=== PATIENT | female | born 1985 | race Caucasian/White ===

== ENCOUNTER → 2017-05-14 | Outpatient (CLI) | payer BC ==
[2017-05-14 12:57] LABS: Basophils % (A) 0 %; Eosinophils # (A) 0.1 k/uL (0-0.7); Eosinophils % (A) 1 %; HCT 45.5 % (34.0-46.0); Lymphocytes # (A) 2.4 k/uL (1.0-4.8); Lymphocytes % (A) 24 %; MCH 28.5 pg (25.0-35.0); MCHC 32.9 g/dL (31.0-37.0); MCV 86.7 fL (80.0-100.0); Mean Platelet Volume 6.9; Monocytes # (A) 0.4 k/uL (0-1.0); Monocytes % (A) 4 %; Neutrophils # (A) 7.1 k/uL (1.3-7.7); Neutrophils % (A) 70 %; Platelet Count 300 k/uL (150-450); RBC 5.25 m/uL (3.80-5.40); RDW 12.9 % (11.5-15.5); WBC 10.1 k/uL (3.8-10.6)
== END | disposition home or self-care (01) ==
LOC: LABPAT 12:05
PROVIDERS: ATTEND Obstetrics & Gynecology
DX: Z01.812 Encounter for preprocedural laboratory examination (principal)
CPT/HCPCS: 36415; 85025

== ENCOUNTER 2017-05-19 05:41 | Day surgery (SDC) | payer BC ==
[2017-05-14 16:21] VITALS: BMI 27.8
--- NOTE | 2017-05-18 07:24 | P.HPOB ---
History of Present Illness H&P Date: 05/18/17 Chief Complaint: Pt is permanent sterilization and IUD removal. This patient is a pleasant 31 yr female who presented to my office requesting permanent sterilization. She is currently using an IUD for control and wishes to have this removed. She is a longstanding insulin dependent diabetic, has one living child and does not desire further children. Past Medical History Past Medical History: Diabetes Mellitus Additional Past Medical History / Comment(s): TYPE ONE DIABETIC , MIGRAINE HEADACHE History of Any Multi-Drug Resistant Organisms: None Reported Past Surgical History: Section, Cholecystectomy Past Anesthesia/Blood Transfusion Reactions: No Reported Reaction Smoking Status: Current every day smoker Past Alcohol Use History: None Reported Past Drug Use History: None Reported - Past Family History Mother Family Medical History: No Reported History Medications and Allergies Home Medications Medication Instructions Recorded Confirmed Type FLUoxetine HCL [PROzac] 20 mg PO DAILY 05/14/17 05/14/17 History INSULIN LISPRO (HumaLOG) [HumaLOG] 12 units SQ QID 05/14/17 05/14/17 History Insulin Glargine [Lantus] 30 unit SQ HS 05/14/17 05/14/17 History Propranolol HCl 10 mg PO BID 05/14/17 05/14/17 History Allergies Allergy/AdvReac Type Severity Reaction Status Date / Time latex Allergy Rash/Hives Verified 05/14/17 13:36 Exam - OBG Physical Exam Abdomen: bowel sounds normal, no diffuse tenderness, no bruit present, no guarding noted, no hepatomegaly, no splenomegaly, no mass Vulva: both: normal Vagina: normal moisture, no discharge Cervix: no lesion (IUD strings visualized), no discharge Uterus: normal size, normal contour Assessment and Plan Assessment: This is a pleasant 31 yr female who is presenting for laparoscopic bilateral fallopian tube cauterization for permanent sterilization. She is also requesting her IUD be removed at this time. She and I have discussed this surgery and she understands that it is considered permanent, however there is a failure rate of about 5-11/999 procedures done and ~50% chance of ectopic or tubal if ever . She understands that the surgery itself inherently has risks: infection, bleeding, possible injury to bowel/bladder/ vessels and/or other organs. She understands that alternatives exist to this surgery and it is considered elective. All of the patients questions are answered and a written consent is obtained. (1) Family planning Status: Acute Code(s): Z30.09 - ENCOUNTER FOR OT GENERAL CNSL AND ADVICE ON CONTRACEPTION SNOMED Code(s): 508838806 (2) IUD (intrauterine device) in place Status: Chronic Code(s): Z97.5 - PRESENCE OF (INTRAUTERINE) CONTRACEPTIVE DEVICE SNOMED Code(s): 544185228
[~2017-05-19 05:41] MED LIST: DEXAMETHASONE SOD PHOSPHATE 10 MG/ML 1 ML VIAL IV ONE; LACTATED RINGERS 1,000 ML IV SCH; MIDAZOLAM 2 MG/2 ML VIAL IV PRN; MORPHINE SULFATE 4MG/4ML SYRG IVP PRN; ONDANSETRON 4 MG/2 ML VIAL IVP ONE; Pre Op ABX Message 1 EACH MISC MISCELLANE ONE
[2017-05-19 06:17] LABS: Glucose,Whole Blood 235 mg/dL (75-99)
[2017-05-19] MEDS ORDERED: LACTATED RINGERS 1,000 ML IV ONE ×2 (06:22→07:42)
[2017-05-19] MEDS ORDERED: LIDOCAINE 1% 20 ML VIAL (10MG/ML) FOR IV START INTRADERMA ONE (06:25)
[2017-05-19] MEDS ORDERED: INSULIN ASPART 100 UNIT/ML 1 ML 10 ML VIAL SQ ONE (06:50)
[2017-05-19] MEDS ORDERED: SUCCINYLCHOLINE CHLORIDE 100 MG/5 ML SYR IV ONE (07:24)
[2017-05-19] MEDS ORDERED: MIDAZOLAM 2 MG/2 ML VIAL ONE (07:24)
[2017-05-19] MEDS ORDERED: KETOROLAC 30 MG/ML 1 ML VIAL ONE (07:24)
[2017-05-19] MEDS ORDERED: NEOSTIGMINE 1 MG/ML 10 ML VIAL ONE (07:24)
[2017-05-19] MEDS ORDERED: PROPOFOL 10 MG/ML 20 ML VIAL IV ONE (07:24)
[2017-05-19] MEDS ORDERED: LIDOCAINE 1% INJ 10MG/ML (20 ML MDV) ONE (07:24)
[2017-05-19] MEDS ORDERED: GLYCOPYRROLATE 0.2 MG/ML 2 ML VIAL ONE (07:24)
[2017-05-19] MEDS ORDERED: fentaNYL (PF) 50 MCG/ML 2 ML AMP ONE (07:24)
[2017-05-19] MEDS ORDERED: ROCURONIUM BROMIDE 10 MG/ML 10 ML VIAL IV ONE (07:24)
[2017-05-19] MEDS ORDERED: BUPIVACAINE (PF) 0.5% 30 ML VIAL SQ ONE (07:40)
--- NOTE | 2017-05-19 08:12 | P.OP ---
Date of Procedure: 05/19/17 Preoperative Diagnosis: Desires permanent sterilization; IUD in place Postoperative Diagnosis: Same Procedure(s) Performed: Laparoscopic bilateral fallopian tube cauterization.; IUD removal Anesthesia: GILLA Surgeon: Woody Barlow Estimated Blood Loss (ml): 10 IV fluids (ml): 500 Urine output (ml): 50 Pathology: none sent Condition: stable Disposition: PACU Indications for Procedure: Please see dictated H&P for intimate details of this patient's admission. Brief summary is a pleasant 32-year-old female who is requesting permanent sterilization for control and IUD removal. Patient I discussed the surgery and risks including risks of infection, bleeding, possible injury to bowel, bladder, vessels, and/or other organs. All the patient's questions are answered and a written consent is obtained. Operative Findings: This patient had a normal-appearing uterus tubes and ovaries. Patient had IUD in place which was removed. Description of Procedure: This patient is taken to the operating room where she is laid in the supine position. She subsequent undergoes general tracheal anesthesia without incident. With an adequate level of anesthesia she's placed in the dorsal lithotomy position. She has a vaginal perineal abdominal prep and drape. I first good on below placed a speculum into the vagina and visualize the cervix. IUD strings are visualized in place and is removed with an Allis clamp without difficulty. I Then Pl., Allis clamp and the anterior lip of the cervix and place a small acorn cannula into the endocervix gently. A latex free catheter is in place and the bladder for 50 mL of urine and left in place to drain. I then changed gloves and go up above. I make a 1 cm infraumbilical incision and through this a 10 mm bladed lists optical trochars placed. Pneumoperitoneum was then created to 12 mm of carbon dioxide gas. With this done I visualize the pelvis and then make a 5 mm incision in the previous C- section scar about 2 finger breaths above the symphysis pubis. Using a blunt probe I visualize the uterus tubes and ovaries all appear normal. Upper abdomen grossly appears normal. Using bipolar cautery I then grasped the left fallopian tube approximately 4 cm from its cornual insertion and cauterization done about 2-3 cm segment of fallopian tube this is done with bipolar cautery complete cauterization is noted by the volt meter. Similar technique is done on the right side with similar results. With this completed and excellent hemostasis noted, the procedure is ended. The lower trochars removed and appears to be hemostatic. Pneumoperitoneum was reduced and the upper trochars removed. Incisions are then closed using a 4-0 Vicryl interrupted fashion. Steri-Strips and sterile dressing is applied. I infiltrate both incisions with half percent Marcaine for postoperative pain control. I then good on below remove the acorn cannula an Allis clamp. All counts are correct 3. There are no complications. Patient is awakened from anesthesia and taken recovery room in satisfactory condition.
[2017-05-19 08:13] LABS: Glucose,Whole Blood 213 mg/dL (75-99)
[2017-05-19 08:16] VITALS: TEMP 97.6
[2017-05-19 09:07] VITALS: RESP 18
[2017-05-19] MEDS ORDERED: MORPHINE SULFATE 10 MG/ML SYRINGE IVP ONE (09:07)
[2017-05-19] MEDS ORDERED: HYDROcodone/APAP 5-325MG 1 EACH TAB PO ONE (09:08)
[2017-05-19 09:29] VITALS: BP 106/67; PULSE 70
== END 2017-05-19 09:59 | disposition home or self-care (01) ==
LOC: OR 05:41
PROVIDERS: ATTEND Obstetrics & Gynecology
DX: Z30.2 Encounter for sterilization (principal); F17.210 Nicotine dependence, cigarettes, uncomplicated; R00.0 Tachycardia, unspecified; E11.9 Type 2 diabetes mellitus without complications; Z79.4 Long term (current) use of insulin; Z79.899 Other long term (current) drug therapy; Z91.040 Latex allergy status; Z90.49 Acquired absence of other specified parts of digestive tract; Z97.5 Presence of (intrauterine) contraceptive device
CPT/HCPCS: 81025; 58670; 58301; J2250; J1100; J2710; J2270; J2405; J2001; J3010; J1885; J0330; J2704

== ENCOUNTER → 2020-04-05 | Outpatient (CLI) | payer BC, MEDICAID ==
--- NOTE | 2020-04-06 06:47 | CT ---
EXAMINATION TYPE: CT brain wo con DATE OF EXAM: 04/05/2020 COMPARISON: None. HISTORY: Dizziness and giddiness x2 weeks, no injury. CT DLP: 794.3 mGycm. Automated Exposure Control for Dose Reduction was Utilized. TECHNIQUE: CT scan of the head is performed without contrast. FINDINGS: There is no acute intracranial hemorrhage, mass effect, or midline shift identified. The ventricles and sulci are within normal limits in size. Amanda-white matter differentiation is maintain ed. No suspicious opacification mastoid air cells. The globes are intact and the visualized sinuses a re clear. IMPRESSION: Unremarkable study.
== END | disposition home or self-care (01) ==
LOC: RADCTMAIN 17:15
PROVIDERS: ATTEND Family Medicine
DX: R42 Dizziness and giddiness (principal)
CPT/HCPCS: 70450

== ENCOUNTER → 2020-04-06 | Outpatient (CLI) | payer BC, MEDICAID | LOC: LABWHC1 10:50 | PROVIDERS: ATTEND Family Medicine | DX: Z03.89 Encounter for observation for other suspected diseases and conditions ruled out (principal); Z20.822 Contact with and (suspected) exposure to COVID-19 | CPT/HCPCS: 87635; C9803 ==

== ENCOUNTER → 2020-04-09 | Outpatient (CLI) | payer BC, MEDICAID | END | disposition home or self-care (01) | LOC: LABWHC1 16:36 | PROVIDERS: ATTEND Family Medicine | DX: Z20.822 Contact with and (suspected) exposure to COVID-19 (principal) | CPT/HCPCS: U0003; C9803; U0005 ==

== ENCOUNTER → 2020-09-14 | Outpatient (CLI) | payer BC, MEDICAID ==
--- NOTE | 2020-09-15 03:50 | MR ---
EXAMINATION TYPE: MR brain and iac wo/w con DATE OF EXAM: 09/14/2020 COMPARISON: None HISTORY: Sudden right ear hearing loss for 9 days. CONTRAST: Standard multiplanar, multisequence MRI departmental protocol utilizing 8.5 mL intravenous Gadavist g adolinium contrast. Ventricles and sulci appear normal. There is no mass effect nor midline shift. There is no sign of in tracranial hemorrhage. Diffusion images show no evidence of an acute infarct. Corpus callosum appears normal. The brainstem is intact. The flores-white matter structures have fairly normal signal pattern. There is no evidence of cerebral edema. The internal auditory canals appear normal. There is normal appearance of the acoustic nerve and vest ibular nerves. There is no evidence of a posterior fossa mass. Cerebellum appears normal. There is no rmal signal pattern in the temporal bones. There is no evidence of mastoiditis. The contrast images s how no pathologic enhancement. There is normal enhancement of the venous sinuses. Pituitary stalk is in the midline. There is no evidence of a sellar mass. Optic chiasm appears normal. IMPRESSION: Negative MR scan of the brain. No evidence of a focal posterior fossa abnormality. No evidence of dem yelinating disease. I do not see a cause for hearing loss.
== END | disposition home or self-care (01) ==
LOC: RADMRIMAIN 19:02
PROVIDERS: ATTEND Otolaryngology
DX: H93.3X9 Disorders of unspecified acoustic nerve (principal); H93.19 Tinnitus, unspecified ear; H91.90 Unspecified hearing loss, unspecified ear; R51.9 Headache, unspecified
CPT/HCPCS: 70553; A9585

== ENCOUNTER 2021-03-09 06:39 | Emergency (ER) | payer BC, MEDICAID ==
--- NOTE | 2021-03-09 07:08 | ED ---
General Adult HPI - General Chief complaint: Shortness of Breath Stated complaint: Shortness of breath Time Seen by Provider: 03/09/21 06:56 Source: patient, RN notes reviewed Mode of arrival: ambulatory Limitations: no limitations - History of Present Illness Initial comments: 35-year-old female presents emergency Department chief complaint of COVID-19. Patient states that she service symptoms on Thursday and primary on Thursday. Patient states she tested negative at home but did appear a tested radiate which was positive. Patient has recurrent her results. Patient states that she has had sore throat bodyaches mild shortness of breath cough. Patient is known to 1 diabetic on insulin pump. Patient is here requesting monoclonal antibodies. - Related Data Home Medications Medication Instructions Recorded Confirmed FLUoxetine HCL [PROzac] 20 mg PO DAILY 05/14/17 05/14/17 INSULIN LISPRO (HumaLOG) [HumaLOG] 12 units SQ QID 05/14/17 05/14/17 Insulin Glargine [Lantus] 30 unit SQ HS 05/14/17 05/14/17 Propranolol HCl 10 mg PO BID 05/14/17 05/14/17 Previous Rx's Medication Instructions Recorded Acetaminophen-Codeine 300-30mg 1 - 2 tab PO Q4H PRN #30 tablet 05/19/17 [Tylenol #3] Ibuprofen [Motrin] 600 mg PO Q6HR PRN #40 tab 05/19/17 Allergies Allergy/AdvReac Type Severity Reaction Status Date / Time latex Allergy Rash/Hives Verified 03/09/21 06:54 Review of Systems ROS Statement: Those systems with pertinent positive or pertinent negative responses have been documented in the HPI. ROS Other: All systems not noted in ROS Statement are negative. Past Medical History Past Medical History: Diabetes Mellitus History of Any Multi-Drug Resistant Organisms: ESBL Date of last positivie culture/infection: 2011 MDRO Source:: bladder Past Surgical History: Section, Cholecystectomy Past Psychological History: Anxiety Smoking Status: Vaper Past Alcohol Use History: Occasional Past Drug Use History: None Reported General Exam Limitations: no limitations General appearance: alert, in no apparent distress Head exam: Present: atraumatic, normocephalic, normal inspection Eye exam: Present: normal appearance, PERRL, EOMI. Absent: scleral icterus, conjunctival injection, periorbital swelling ENT exam: Present: normal exam, normal oropharynx, mucous membranes moist Neck exam: Present: normal inspection, full ROM. Absent: tenderness, meningi smus, lymphadenopathy Respiratory exam: Present: rhonchi (Left). Absent: normal lung sounds bilaterally, respiratory distress, wheezes, rales, stridor Cardiovascular Exam: Present: regular rate, normal rhythm, normal heart sounds. Absent: systolic murmur, diastolic murmur, rubs, gallop, clicks Course Vital Signs 03/09/21 06:48 Temperature 98.9 F Pulse Rate 105 H Respiratory 24 Rate Blood Pressure 105/67 O2 Sat by Pulse 99 Oximetry Medical Decision Making - Medical Decision Making 35-year-old female presented for monoclonal antibodies. X-rays unremarkable. Patient did receive monoclonal antibodies and will be discharged in stable condition return parameters were discussed Disposition Clinical Impression: COVID-19 Disposition: HOME SELF-CARE Condition: Stable Instructions (If sedation given, give patient instructions): Coronavirus Disease 2019 (COVID-19) Additional Instructions: Please return to the Emergency Department if symptoms worsen or any other concerns. Is patient prescribed a controlled substance at d/c from ED?: No Referrals: Vic Atkinson MD [Primary Care Provider] - 1-2 days Time of Disposition: 07:35
--- NOTE | 2021-03-09 07:16 | XR ---
EXAMINATION TYPE: XR chest 2V DATE OF EXAM: 03/09/2021 COMPARISON: None HISTORY: Shortness of breath TECHNIQUE: Frontal and lateral views of the chest are obtained. FINDINGS: There is no focal air space opacity, pleural effusion, or pneumothorax seen. The cardiac silhouette size is within normal limits. The osseous structures are intact. IMPRESSION: No acute cardiopulmonary process.
[2021-03-09] MEDS ORDERED: SODIUM CHLORIDE 0.9% 50 ML IVPB ONE (07:30)
[2021-03-09] MEDS ORDERED: SOTROVIMAB (EUA) 500 MG in SODIUM CHLORIDE 0.9% 100 ML IVPB ONE (07:30)
[2021-03-09 07:50] VITALS: RESP 16
[2021-03-09 09:24] VITALS: BP 102/69; PULSE 90; TEMP 97.8
== END 2021-03-09 09:23 | disposition home or self-care (01) ==
LOC: EC 06:39
DX: U07.1 COVID-19 (principal); F17.290 Nicotine dependence, other tobacco product, uncomplicated; E11.9 Type 2 diabetes mellitus without complications; Z91.040 Latex allergy status; Z79.4 Long term (current) use of insulin
CPT/HCPCS: 71046; 99284; Q0247

== ENCOUNTER 2021-05-21 19:33 | Emergency (ER) | payer BC ==
[2021-05-21 19:59] VITALS: BP 114/67; PULSE 101; RESP 18; TEMP 97.8
[2021-05-21 20:24] LABS: Basophils % (A) 0 %; Eosinophils % (A) 1 %; HCT 38.7 % (34.0-46.0); HGB 12.8 gm/dL (11.4-16.0); Lymphocytes # (A) 2.6 k/uL (1.0-4.8); Lymphocytes % (A) 36 %; MCH 29.7 pg (25.0-35.0); MCHC 33.1 g/dL (31.0-37.0); MCV 89.9 fL (80.0-100.0); Monocytes # (A) 0.4 k/uL (0-1.0); Monocytes % (A) 5 %; Neutrophils # (A) 4.1 k/uL (1.3-7.7); Neutrophils % (A) 56 %; Platelet Count 375 k/uL (150-450); RDW 13.9 % (11.5-15.5); WBC 7.3 k/uL (3.8-10.6)
[2021-05-21 20:34] LABS: INR 0.9 (<1.2); Partial Thromboplastin Time 24.2 sec (22.0-30.0); Prothrombin Time 10.3 sec (9.0-12.0)
[2021-05-21 20:35] LABS: ALT 9 U/L (4-34); AST 17 U/L (14-36); African American GFR (CKD) >90 (>60 ml/min/1.73 sqM); Albumin 4.5 g/dL (3.5-5.0); Alkaline Phosphatase 94 U/L (38-126); Anion Gap 9 mmol/L; Blood Urea Nitrogen 15 mg/dL (7-17); Calcium 9.4 mg/dL (8.4-10.2); Carbon Dioxide 25 mmol/L (22-30); Chloride 101 mmol/L (98-107); Glucose 151 mg/dL (74-99); Magnesium 1.7 mg/dL (1.6-2.3); Non-African American GFR(CKD) 82 (>60 ml/min/1.73 sqM); Potassium 4.2 mmol/L (3.5-5.1); Sodium 135 mmol/L (137-145); Total Bilirubin 0.5 mg/dL (0.2-1.3); Total Protein 7.4 g/dL (6.3-8.2)
--- NOTE | 2021-05-21 20:39 | XR ---
EXAMINATION TYPE: XR chest 2V DATE OF EXAM: 05/21/2021 COMPARISON: 03/09/2021 HISTORY: Chest pain TECHNIQUE: 2 views FINDINGS: Heart and mediastinum are normal. Lungs are clear. Diaphragm is normal. Bony thorax appears normal. IMPRESSION: Normal chest. No change.
== END 2021-05-21 22:26 | disposition left against medical advice (07) ==
LOC: EC 19:33
DX: Z53.21 Procedure and treatment not carried out due to patient leaving prior to being seen by health care provider (principal)
CPT/HCPCS: 36415; 71046; 80053; 83735; 84484; 85025; 85610; 85730; 93005; 99499

== ENCOUNTER → 2021-06-19 | Outpatient (CLI) | payer BC ==
--- NOTE | 2021-06-19 12:46 | US ---
EXAMINATION TYPE: US thyroid st tissue head/neck DATE OF EXAM: 06/19/2021 COMPARISON: CT 05/22/21 CLINICAL HISTORY: E04.2 POSSIBLE GOITER. f/u to CT GLAND SIZE: Right Lobe: 5.2 x 1.8 x 1.2 cm Overall Parenchyma: heterogenous Left Lobe: 6.4 x 2.1 x 1.5 cm Overall Parenchyma: heterogeneous Isthmus Thickness: 0.7 cm NODULES RIGHT: # of nodules measured on right: 0, diffusely heterogeneous LEFT: # of nodules measured on left: 1 1. 2.7 X 2.5 x 1.4 cm, lower mid, solid or almost completely solid, hyperechoic nodule, which is ta ller than wide, with ill-defined margins, without echogenic foci. Prior size: No previous, diffusely heterogeneous ISTHMUS: # of nodules measured in the isthmus: 1 1. 0.8 X 0.8 x 0.8 cm solid or almost completely solid, hyperechoic nodule, which is , with ill-def ined margins, without echogenic foci. very inferior, toward right side. Prior size: No previous Bilateral neck scanned, no evidence of lymphadenopathy. IMPRESSION: 1. Glandular enlargement with diffuse heterogeneity. 2. Nonspecific solid isoechoic nodule right thyroid lobe consider tissue diagnosis.
== END | disposition home or self-care (01) ==
LOC: RADUSWWP 12:02
PROVIDERS: ATTEND Internal Medicine Endocrinology, Diabetes & Metabolism
DX: E04.2 Nontoxic multinodular goiter (principal)
CPT/HCPCS: 76536

== ENCOUNTER → 2021-07-16 | Outpatient (CLI) | payer BC ==
[2021-07-16 15:01] LABS: HCT 41.4 % (37.2-46.3); HGB 12.6 g/dL (12.0-15.0); MCH 27.2 pg (27.0-32.0); MCHC 30.4 g/dL (32.0-37.0); MCV 89.2 fL (80.0-97.0); Mean Platelet Volume 9.9 fL (9.5-12.2); NRBC Per 100 WBC 0 /100 WBCS (0.0-0.0); Platelet Count 373 X 10*3/uL (140-440); RBC 4.64 X 10*6/uL (4.10-5.20); RDW 13.2 % (11.5-14.5); WBC 4.64 X 10*3/uL (4.50-10.00)
[2021-07-16 15:23] LABS: T4, Free (Free Thyroxine) 1.02 ng/dL (0.800-1.800)
== END | disposition home or self-care (01) ==
LOC: LABWHC1 08:41
PROVIDERS: ATTEND Internal Medicine
DX: R55 Syncope and collapse (principal)
CPT/HCPCS: 36415; 82533; 83880; 84439; 84443; 85027

== ENCOUNTER 2021-07-23 12:44 | Day surgery (SDC) | payer BC ==
[2021-07-23 13:34] VITALS: RESP 18; TEMP 98.1
[2021-07-23 14:36] VITALS: BP 106/69; PULSE 83
--- NOTE | 2021-07-23 15:27 | US ---
Discontinued fine-needle aspiration HISTORY: Abnormal thyroid ultrasound Correlation ultrasound thyroid 06/19/2021 A discrete nodule was not identified for percutaneous biopsy at this time. The gland is diffusely heterogeneous, consider underlying thyroiditis. impression: Discontinued biopsy, consider thyroiditis
== END 2021-07-23 14:45 | disposition home or self-care (01) ==
LOC: RADPROMAIN 12:44
PROVIDERS: ATTEND Otolaryngology
DX: E04.1 Nontoxic single thyroid nodule (principal)
CPT/HCPCS: 76536

== ENCOUNTER → 2021-07-25 | Outpatient (CLI) | payer BC | END | disposition home or self-care (01) | LOC: LABWHC1 10:20 | PROVIDERS: ATTEND Family Medicine | DX: E06.9 Thyroiditis, unspecified (principal) | CPT/HCPCS: 36415; 84481; 86376; 86800 ==

== ENCOUNTER → 2021-07-29 | Day surgery (SDC) | payer BC ==
[2021-07-26 10:37] VITALS: BMI 26.6
[~2021-07-29] MED LIST changes: -DEXAMETHASONE SOD PHOSPHATE 10 MG/ML 1 ML VIAL IV ONE; +IV FLUID CONTINUATION 500 ML IV ONE; -LACTATED RINGERS 1,000 ML IV SCH; -MIDAZOLAM 2 MG/2 ML VIAL IV PRN; -MORPHINE SULFATE 4MG/4ML SYRG IVP PRN; -ONDANSETRON 4 MG/2 ML VIAL IVP ONE; -Pre Op ABX Message 1 EACH MISC MISCELLANE ONE; +SODIUM CHLORIDE 0.9% 1,000 ML IV SCH
[2021-07-29 12:32] LABS: Glucose,Whole Blood 97 mg/dL (70-110)
[2021-07-29 12:52] VITALS: BP 110/71; PULSE 86; RESP 16; TEMP 97.3
--- NOTE | 2021-07-29 17:14 | P.EPPROC ---
- EP Procedure Note Electrophysiology Procedure Note: Diagnosis Recurrent syncope Twelve-lead EKG sinus mechanism normal IA narrow QRS normal ST segments No delta waves no epsilon waves normal precordial ST segments Tilt table test per protocol Baseline blood pressure 102/64 mmHg Baseline heart rate 75-80 beats a minute Patient was tilted upright per protocol Baseline blood pressure 102/64 mmHg Baseline heart rate 75-80 bpm When he was tilted upright his heart rate immediately increased to 110 beats a minute Blood pressure was 108/73 mmHg He complained of dizziness and feeling hot Thereafter his heart rate ranged from 110-120 beats a minute Minute reached 120 beats a minute complained of feeling hot and 40 At no time he experienced a drop in blood pressure or any evidence for neurocardiogenic syncope At the end of the procedure when he was laid supine his blood pressure remained stable but his heart rate normalized to his baseline to 75-80 beats a minute Impression Orthostatic intolerance No evidence for secondary neurocardiogenic syncope Normal twelve-lead EKG
== END ==
LOC: CATHEP 11:45
PROVIDERS: ATTEND Internal Medicine Clinical Cardiac Electrophysiology
DX: R55 Syncope and collapse (principal); E10.9 Type 1 diabetes mellitus without complications; I10 Essential (primary) hypertension; Z82.49 Family history of ischemic heart disease and other diseases of the circulatory system; Z86.16 Personal history of COVID-19; R00.2 Palpitations; I49.8 Other specified cardiac arrhythmias; Z79.4 Long term (current) use of insulin; Z79.899 Other long term (current) drug therapy; Z20.822 Contact with and (suspected) exposure to COVID-19
CPT/HCPCS: 87635; 93660

== ENCOUNTER → 2021-11-12 | Outpatient (CLI) | payer BC ==
--- NOTE | 2021-11-12 15:43 | US ---
EXAMINATION TYPE: US thyroid st tissue head/neck DATE OF EXAM: 11/12/2021 COMPARISON: US June 19, 2021 CLINICAL HISTORY: E04.1 NONTOXIC SINGLE THYROID NODULE. Follow up from discontinued thyroid FNA GLAND SIZE: Right Lobe: 5.1 x 1.9 x 1.5 cm Overall Parenchyma: heterogenous Left Lobe: 6.9 x 2.3 x 1.6 cm, enlarged Overall Parenchyma: heterogeneous Isthmus Thickness: 0.5 cm NODULES RIGHT: # of nodules measured on right: 0 LEFT: # of nodules measured on left: 0 ISTHMUS: # of nodules measured in the isthmus: 0 Diffusely heterogeneous thyroid with enlarged left lobe, no definite nodules seen at this time. Bilateral neck scanned, no evidence of lymphadenopathy. Heterogeneous prominent thyroid with asymmetric left thyroid lobe enlargement is redemonstrated. No d efinitive new solid or cystic nodules identified on current study. IMPRESSION: As above.
== END | disposition home or self-care (01) ==
LOC: RADUSWWP 14:53
PROVIDERS: ATTEND Family Medicine
DX: E04.1 Nontoxic single thyroid nodule (principal)
CPT/HCPCS: 76536

== ENCOUNTER → 2022-06-09 | Outpatient (CLI) | payer BC ==
--- NOTE | 2022-06-10 18:51 | MM ---
Reason for Exam: Screening (asymptomatic). Baseline mammogram. Patient History: Menarche at age 11. First Full-Term at age 22. Maternal aunt had breast cancer under age 50. Maternal aunt had breast cancer at or over age 50. Mother had breast cancer at or over age 50. Last menstrual period: 06/08/2022 Risk Values: Hoda 5 year model risk: 0.9%. NCI Lifetime model risk: 18.5%. Prior Study Comparison: Patient's first Mammogram. Tissue Density: The breast tissue is heterogeneously dense. This may lower the sensitivity of mammography. Findings: Analyzed By CAD. No significant mass, suspicious microcalcification, or other discrete abnormality is seen. Overall Assessment: Benign, BI-RAD 2 Management: Screening Mammogram of both breasts at age 39. . Patient should continue monthly self-breast exams. A clinical breast exam by your physician is recommended on an annual basis. This exam should not preclude additional follow-up of suspicious palpable abnormalities. Note on Hoda scores and lifetime risk: 1. A Hoda score greater than 3% is considered moderate risk. If this is the case, consider specialist referral to assess eligibility for a risk reducing agent. 2. If overall lifetime risk for the development of breast cancer is 20% or higher, the patient may qualify for future screening with alternating mammogram and breast MRI. Electronically signed and approved by: Maribel Fernandez M.D. Radiologist
== END | disposition home or self-care (01) ==
LOC: RADMAMWWP 11:07
PROVIDERS: ATTEND Family Medicine
DX: Z12.31 Encounter for screening mammogram for malignant neoplasm of breast (principal); Z80.3 Family history of malignant neoplasm of breast
CPT/HCPCS: 77067

== ENCOUNTER → 2022-07-04 | Outpatient (CLI) | payer BC ==
--- NOTE | 2022-07-04 14:06 | US ---
EXAMINATION TYPE: US thyroid st tissue head/neck DATE OF EXAM: 07/04/2022 COMPARISON: Thyroid NOVEMBER 12, 2021 CLINICAL INDICATION: Female, 37 years old with history of E04.1 NONTOXIC SINGLE THYROID NODULE; thyro megaly GLAND SIZE: Right Lobe: 5.2 x 1.8 x 1.5 cm Overall Parenchyma: heterogenous Left Lobe: 6.5 x 1.9 x 1.6 cm Overall Parenchyma: heterogenous Isthmus Thickness: 0.4 cm NODULES RIGHT: # of nodules measured on right: 0 LEFT: # of nodules measured on left: - possible ill-defined slightly hyperechoic nodule lower fabiola e = 1.9 x 1.1 x 1.6cm ISTHMUS: # of nodules measured in the isthmus: 0 Bilateral neck scanned, no evidence of lymphadenopathy. Markedly heterogeneous fairly normal size thyroid remains present. IMPRESSION: As above.
== END | disposition home or self-care (01) ==
LOC: RADUSWWP 12:49
PROVIDERS: ATTEND Otolaryngology
DX: E04.1 Nontoxic single thyroid nodule (principal)
CPT/HCPCS: 76536

== ENCOUNTER → 2022-08-06 | Outpatient (CLI) | payer BC ==
--- NOTE | 2022-08-07 09:15 | NM ---
EXAMINATION TYPE: NM thyroid image w uptake DATE OF EXAM: 08/07/2022 COMPARISON: Multiple thyroid ultrasounds most recently 07/04/2022 CLINICAL INDICATION: Female, 37 years old with history of E04.1; TECHNIQUE: Thyroid iodine uptake is calculated and images performed after the oral administration of 324 uCi 1-123 Capsule. FINDINGS: There is normal distribution of activity throughout the gland. The gland is bulky with asym metric enlargement of the left thyroid gland corresponding to ultrasound. The 4 hour iodine uptake is calculated at 14.2% (normal range 8-14%). The 24-hour iodine uptake is calculated at 38.6% (normal r nato 15-35%). IMPRESSION: Mildly abnormal increased iodine uptake at 4 hour and 24-hour most consistent with hypert hyroidism.
== END | disposition home or self-care (01) ==
LOC: RADNMMAIN 08:32
PROVIDERS: ATTEND Otolaryngology
DX: E04.1 Nontoxic single thyroid nodule (principal)
CPT/HCPCS: 78014; A9516

== ENCOUNTER → 2024-04-15 | Outpatient (CLI) | payer BC, MEDICARE ==
[2024-04-15 10:59] LABS: African American GFR (CKD) >90 (>60 ml/min/1.73 sqM); Blood Urea Nitrogen 8 mg/dL (7-17); Non-African American GFR(CKD) >90 (>60 ml/min/1.73 sqM)
--- NOTE | 2024-04-15 14:39 | CT ---
EXAMINATION TYPE: CT angio chest CT DLP: 352 mGycm, Automated exposure control for dose reduction was used. DATE OF EXAM: 04/15/2024 11:30 AM COMPARISON: CTA chest 05/22/2021 CLINICAL INDICATION:Female, 39 years old with history of R06.02; SOB TECHNIQUE/CONTRAST: CTA scan of the thorax is performed without and with IV Contrast, patient injected with 100 ml mL of Isovue 370, pulmonary embolism protocol. MIP images are created and reviewed. FINDINGS: Pulmonary Artery: There is no evidence for a filling defect within the pulmonary vasculature to sugge st acute pulmonary embolism. The pulmonary artery is of normal size. Lungs/Pleura: No evidence of focal consolidation, pleural effusion or pneumothorax. No suspicious pul monary nodule or mass. Airway: Large airways are patent. Heart: Size within normal limits.No pericardial effusion No significant coronary artery calcification s. Vasculature: No evidence of aortic aneurysm. Mediastinum: No gross evidence of adenopathy. Musculoskeletal: No acute osseous abnormalities. Multilevel Schmorl's nodes. Soft Tissues: Unremarkable. Lower neck: Enlarged left thyroid lobe with some substernal extension redemonstrated. Upper Abdomen: There is surgical absent.. IMPRESSION: No evidence of pulmonary embolism or acute thoracic process. [facility], , 04/15/2024 2:37 PM
== END | disposition home or self-care (01) ==
LOC: RADCTMAIN 09:33
PROVIDERS: ATTEND Internal Medicine
DX: R06.02 Shortness of breath (principal); E04.8 Other specified nontoxic goiter
CPT/HCPCS: 82565; 84520; 71275; Q9967

== ENCOUNTER → 2024-05-19 | Outpatient (CLI) | payer BC, MEDICARE ==
--- NOTE | 2024-05-19 12:55 | CA ---
Transthoracic Echo Report Name: Sonido Chinchilla Age: 39 Gender: F : 1985 Exam Date: 05/19/2024 09:48 Exam Location: [facility] Ht (in): 67 Wt (lb): 146 Ordering Physician: Kevin Rose DO ([email or web address]) Attending/Referring Phys: Leilani Purcell [facility] Production Assistant Zee Huang RDCS Procedure CPT: Indications: R06.02 SHORTNESS OF BREATH Cardiac Hx: Technical Quality: Good Contrast 1: Agitated Saline Total Dose (mL): 10 Contrast 2: Total Dose (mL): MEASUREMENTS (Male / Female) Normal Values 2D ECHO LV Diastolic Diameter PLAX 3.6 cm 4.2 - 5.9 / 3.9 - 5.3 cm LV Systolic Diameter PLAX 2.5 cm IVS Diastolic Thickness 0.8 cm 0.6 - 1.0 / 0.6 - 0.9 cm LVPW Diastolic Thickness 0.8 cm 0.6 - 1.0 / 0.6 - 0.9 cm LV Relative Wall Thickness 0.4 LVOT Diameter 1.8 cm LV Diastolic Volume MOD BP 74.3 cm??? 67 - 155 / 56 - 104 cm??? LV Systolic Volume MOD BP 27.9 cm??? 22 - 58 / 19 - 49 cm??? LV Ejection Fraction MOD BP 62.4 % >= 55 % LV Cardiac Index MOD BP 2459.0 cm???/min???m??? LV Diastolic Volume MOD 4C 66.2 cm??? LV Systolic Volume MOD 4C 26.5 cm??? LV Ejection Fraction MOD 4C 60.0 % LV Cardiac Index MOD 4C 2106.4 cm???/min???m??? LV Diastolic Length 4C 8.6 cm LV Systolic Length 4C 7.3 cm LV Diastolic Volume MOD 2C 73.6 cm??? LV Systolic Volume MOD 2C 26.4 cm??? LV Ejection Fraction MOD 2C 64.2 % LV Cardiac Index MOD 2C 2504.3 cm???/min???m??? LV Diastolic Length 2C 7.5 cm LV Systolic Length 2C 6.5 cm LA Volume 36.4 cm??? 18 - 58 / 22 - 52 cm??? LA Volume Index 20.5 cm???/m??? 16 - 28 cm???/m??? DOPPLER AV Peak Velocity 126.7 cm/s AV Peak Gradient 6.4 mmHg AV Mean Velocity 85.3 cm/s AV Mean Gradient 3.3 mmHg AV Velocity Time Integral 22.6 cm LVOT Peak Velocity 88.5 cm/s LVOT Peak Gradient 3.1 mmHg LVOT Velocity Time Integral 15.8 cm LVOT Stroke Volume 39.9 cm??? LVOT Stroke Volume Index 22.6 ml/m??? LVOT Cardiac Index 2115.2 cm???/min???m??? AV Area Cont Eq vti 1.8 cm??? AV Area Cont Eq pk 1.8 cm??? MV Area PHT 5.2 cm??? Mitral E Point Velocity 53.1 cm/s Mitral A Point Velocity 46.6 cm/s Mitral E to A Ratio 1.1 MV Deceleration Time 147.0 ms TR Peak Velocity 187.3 cm/s TR Peak Gradient 14.0 mmHg Right Atrial Pressure 5.0 mmHg Pulmonary Artery Systolic Pressu 19.0 mmHg Right Ventricular Systolic Press 19.0 mmHg PV Peak Velocity 80.4 cm/s PV Peak Gradient 2.6 mmHg FINDINGS Left Ventricle Left ventricular ejection fraction is estimated at 60 %. Left ventricular cavity size normal. Left ventricular wall thickness normal. No obvious regional wall motion abnormalities. Right Ventricle Normal right ventricular size and function. Right ventricular systolic pressure within normal limits. Right Atrium Normal right atrial size. Negative agitated saline bubble study for right to left shunt. Left Atrium Normal left atrial size. Mitral Valve Structurally normal mitral valve. No mitral stenosis, regurgitation or prolapse. Aortic Valve Trileaflet aortic valve. No aortic valve stenosis or regurgitation. Tricuspid Valve Structurally normal tricuspid valve. No tricuspid stenosis. Mild tricuspid regurgitation. Pulmonic Valve Pulmonic valve not well visualized. No pulmonic stenosis. No pulmonic regurgitation. Pericardium No pericardial effusion. Aorta Aortic annulus normal. Ascending aorta not well visualized. CONCLUSIONS Technically difficult study Normal LV systolic function Previewed by: Dr. Jimmy Paul MD (Electronically Signed) Final Date: 19 May 2024 12:54
== END | disposition home or self-care (01) ==
LOC: RADECHMAIN 09:42
PROVIDERS: ATTEND Internal Medicine
DX: R06.02 Shortness of breath (principal)
CPT/HCPCS: 93306

== ENCOUNTER → 2024-05-19 | Outpatient (CLI) | payer BC, MEDICARE ==
--- NOTE | 2024-05-19 13:43 | MM ---
Reason for Exam: Screening (asymptomatic). Last mammogram was performed 1 year(s) and 11 month(s) ago. Patient History: Menarche at age 11. First Full-Term at age 22. Maternal aunt had breast cancer under age 50. Maternal aunt had breast cancer at or over age 50. Mother had breast cancer at or over age 50. Last menstrual period: 05/06/2024 Risk Values: Hoda 5 year model risk: 1.1%. NCI Lifetime model risk: 18.3%. Prior Study Comparison: 06/09/2022 Bilateral MG screening mammo w CAD, [facility]. Tissue Density: The breasts are heterogeneously dense, which may obscure small masses. Findings: Analyzed By CAD. There is no suspicious group of microcalcifications or new suspicious mass in either breast. Overall Assessment: Negative, BI-RAD 1 Management: Screening Mammogram of both breasts in 1 year. Patient should continue monthly self-breast exams. A clinical breast exam by your physician is recommended on an annual basis. This exam should not preclude additional follow-up of suspicious palpable abnormalities. Note on Hoda scores and lifetime risk: 1. A Hoda score greater than 3% is considered moderate risk. If this is the case, consider specialist referral to assess eligibility for a risk reducing agent. 2. If overall lifetime risk for the development of breast cancer is 20% or higher, the patient may qualify for future screening with alternating mammogram and breast MRI. [facility], , 05/19/2024 1:41 PM. Electronically signed and approved by: Maribel Fernandez M.D. Radiologist
== END | disposition home or self-care (01) ==
LOC: RADMAMWWP 09:19
PROVIDERS: ATTEND Family Medicine
DX: Z12.31 Encounter for screening mammogram for malignant neoplasm of breast (principal); R92.333 Mammographic heterogeneous density, bilateral breasts; Z80.3 Family history of malignant neoplasm of breast
CPT/HCPCS: 77063; 77067

== ENCOUNTER → 2024-06-06 | Outpatient (CLI) | payer MEDICARE, BC ==
--- NOTE | 2024-06-06 14:15 | US ---
EXAMINATION TYPE: US thyroid st tissue head/neck DATE OF EXAM: 06/06/2024 COMPARISON: NONE CLINICAL INDICATION: Female, 39 years old with history of E04.1 NONTOXIC SINCLE THYROID NODULE; f/u TECHNIQUE: Grayscale and color Doppler imaging of the thyroid gland. FINDINGS: GLAND SIZE: Right Lobe: 5.0 x 1.3 x 1.8 cm Overall Parenchyma: heterogeneous Left Lobe: 6.6 x 1.4 x 2.5 cm Overall Parenchyma: heterogeneous Isthmus Thickness: 0.6 cm NODULES RIGHT: # of nodules measured on right: 0 LEFT: # of nodules measured on left: 1 1. 1.6 X 1.5 x 1.2 cm, lower, solid or almost completely solid, isoechoic nodule, which is wider th an tall, with smooth margins, without echogenic foci. Prior size: 1.9 x 1.6 x 1.1 cm TR4 ISTHMUS: # of nodules measured in the isthmus: 0 Bilateral neck scanned, no evidence of lymphadenopathy. IMPRESSION: TR4 nodule left thyroid lobe. Highest TI-RADS level nodule reported: 2017 ACR TI-RADS LEVEL: TR4 TI-RADS assessment score and recommendation for follow-up based on appropriate scoring and treatment protocols. TR3: If nodule size is ? 2.5 cm, FNA is recommended. If nodule size is ? 1.5 cm, follow-up imaging at 1, 3, and 5 years is recommended. TR4: If nodule size is ? 1.5 cm, FNA is recommended. If nodule size is ? 1.0 cm, follow-up imaging at 1, 2, 3, and 5 years is recommended. TR5: If nodule size is ? 1.0 cm, FNA is recommended. If nodule size is ? 0.5 cm, annual follow-up for up to 5 years is recommended. [email or web address] [facility], , 06/06/2024 2:13 PM
== END | disposition home or self-care (01) ==
LOC: RADUSWWP 13:51
PROVIDERS: ATTEND Family Medicine
DX: E04.1 Nontoxic single thyroid nodule (principal)
CPT/HCPCS: 76536

== ENCOUNTER 2024-07-12 08:28 | Day surgery (SDC) | payer BC, MEDICARE ==
[2024-07-12] MEDS: ALPRAZolam 0.5 MG TAB PO STA (08:56)
[2024-07-12 10:03] VITALS: BP 112/65; PULSE 64; RESP 18
--- NOTE | 2024-07-12 13:05 | US ---
EXAMINATION TYPE: US FNA thyroid first lesion DATE OF EXAM: 07/12/2024 9:41 AM COMPARISON: 06/06/2024 CLINICAL INDICATION:Female, 39 years old with history of E04.1 NONTOXIC SINGLE THYROID NODULE; , ATTENDING: Dr. Bart Hutchins PROCEDURE: Informed consent was obtained. The risks and benefits of the procedure were discussed with the patien t. The site was marked. Timeout procedure was performed Ultrasound imaging demonstrates left inferior thyroid nodule measuring up to 1.5 cm with isoechoic ec hotexture and well-circumscribed borders compatible with TR3. The patient was prepped, draped in the usual sterile fashion, and locally anesthetized with 1% lidoca ine. Five fine needle aspiration were then performed with a 25 gauge needle. Samples were sent to [facility] pathology department for further analysis. Patient tolerated the procedure without incident and wa s sent home in stable condition. IMPRESSION: Successful ultrasound guided fine needle aspiration [facility], , 07/12/2024 1:03 PM
== END 2024-07-12 10:00 | disposition home or self-care (01) ==
LOC: RADPROMAIN 08:28
PROVIDERS: ATTEND Family Medicine
DX: E04.1 Nontoxic single thyroid nodule (principal)
CPT/HCPCS: 10005; 88173; 88305

== ENCOUNTER 2024-09-05 08:22 | Day surgery (SDC) | payer BC, MEDICARE ==
[2024-09-05 08:40] VITALS: BP 116/69; PULSE 80; RESP 12; TEMP 98.7
[2024-09-05] MEDS: ALPRAZolam 0.5 MG TAB PO STA (08:42)
--- NOTE | 2024-09-05 10:51 | US ---
EXAMINATION TYPE: US FNA thyroid first lesion DATE OF EXAM: 09/05/2024 10:18 AM COMPARISON: 07/12/2024 CLINICAL INDICATION: Female, 39 years old with history of E04.1 NONTOXIC SINGLE THYROID NODUL, recent FNA with nondiagnostic results. Repeat sampling. RADIOLOGIST: Dr. Franc Fernandez PROCEDURE: An initial scanning showed the solid isoechoic mid to lower pole nodule measuring 1.6 cm and the left lobe. This is targeted for FNA. The procedure, along with the risks and complications were discussed with the patient. Patient agreed to proceed with the procedure. A consent was signed and placed in patient's chart. Maximum sterile barrier technique was utilized. Timeout was performed by myself. The left side of the neck was sterilely prepped and draped in the usual fashion. 5 mL of 1% Lidocaine were utilized to an esthetize the superficial and deep soft tissues at each nodule in turn. Following that, under ultrasound guidance, 5 passes were made into the targeted nodule. After each pa ss, the sample was placed on a slide and then sent for pathology. Upon conclusion, hemostasis was achieved, and patient was discharged home in satisfactory condition. IMPRESSION: Successful FNA of the 1.6 cm solid isoechoic nodule in the left lobe. Pathology pending. Repeat sampl ing after nondiagnostic results last month. [facility], , 09/05/2024 10:49 AM
== END 2024-09-05 10:20 | disposition home or self-care (01) ==
LOC: RADPROMAIN 08:22
PROVIDERS: ATTEND Family Medicine
DX: E04.1 Nontoxic single thyroid nodule (principal)
CPT/HCPCS: 10005; 88173; 88305